=== PATIENT | female | born 1945 | race Native Hawaiian/Other Pacific Islander ===

== ENCOUNTER 2017-01-18 09:27 | Outpatient (CLI) | payer OTHER ==
[~2017-01-18] VITALS: Ht 160 cm; Wt 75.3 kg
[~2017-01-18 09:27] MED LIST: ACET-689 PO; ASPIRIN ADULT L81 MG OR; CELE200C2 PO; FLOVENT DISK100 MCG IN; GLIM2TAB PO; JANUMET1 TA1 PO; LISI10TA11 PO; PANT40TA PO; SIMV20TA2 PO; TIZA4TAB5 PO; XYZAL5 MG OR
[2017-01-18 10:20] VITALS: BP 85/56; TEMP 97.7
== END 2017-01-18 19:07 | disposition home or self-care (01) ==
LOC: INF 09:27
DX: M81.0 Age-related osteoporosis without current pathological fracture (principal)
CPT/HCPCS: 82310; 96372; J0897

== ENCOUNTER 2017-08-01 09:50 | Outpatient (CLI) | payer OTHER ==
[~2017-08-01] VITALS: Ht 160 cm; Wt 75.3 kg
[2017-08-01 11:30] VITALS: BP 164/67; TEMP 97.5
== END 2017-08-01 11:30 | disposition home or self-care (01) ==
LOC: INF 09:50
DX: M81.0 Age-related osteoporosis without current pathological fracture (principal)
CPT/HCPCS: 36415; 82310; 96372; J0897

== ENCOUNTER 2017-08-08 11:37 | Outpatient (CLI) | payer OTHER | END 2017-08-08 19:07 | disposition home or self-care (01) | LOC: LAB 11:37 | DX: K64.0 First degree hemorrhoids (principal) | CPT/HCPCS: 82272 ==

== ENCOUNTER 2018-02-19 09:09 | Outpatient (CLI) | payer OTHER ==
[~2018-02-19] VITALS: Ht 160 cm; Wt 74.4 kg
[2018-02-19 09:22] VITALS: BP 139/81; TEMP 97.6
== END 2018-02-19 09:58 | disposition home or self-care (01) ==
LOC: INF 09:09
DX: M81.0 Age-related osteoporosis without current pathological fracture (principal)
CPT/HCPCS: 36415; 82310; 96372; J0897

== ENCOUNTER 2018-09-02 08:08 | Outpatient (CLI) | payer OTHER ==
[~2018-09-02] VITALS: Ht 160 cm; Wt 74.4 kg
== END 2018-09-02 19:50 | disposition home or self-care (01) ==
LOC: INF 08:08
DX: M81.0 Age-related osteoporosis without current pathological fracture (principal)
CPT/HCPCS: 36415; 82310; 96372; J0897

== ENCOUNTER 2018-09-16 09:29 | Outpatient (CLI) | payer OTHER | END 2018-09-16 19:21 | disposition home or self-care (01) | LOC: MAMMO 09:29 → LAB 09:29 → MAMMO 09:30 | DX: K64.0 First degree hemorrhoids (principal); Z12.31 Encounter for screening mammogram for malignant neoplasm of breast | CPT/HCPCS: 82272 ==

== ENCOUNTER 2021-05-11 10:39 | Outpatient (CLI) | payer OTHER | END 2021-05-11 23:59 | disposition home or self-care (01) | LOC: US 10:39 | PROVIDERS: ATTEND Internal Medicine | DX: R10.84 Generalized abdominal pain (principal); M54.5 Low back pain; M79.605 Pain in left leg; R60.0 Localized edema ==

== ENCOUNTER 2022-08-22 09:51 | Outpatient (CLI) | payer OTHER | END 2022-08-22 19:31 | disposition home or self-care (01) | LOC: RAD 09:51 | PROVIDERS: ATTEND Internal Medicine | DX: M54.2 Cervicalgia (principal) ==